=== PATIENT | male | born 1990 | race Caucasian/White ===

== ENCOUNTER 2020-11-15 17:33 | Emergency (ER) | payer MEDICAID ==
[~2020-11-15] VITALS: Ht 182.9 cm; Wt 83.0 kg
[2020-11-15 17:36] VITALS: BP 118/80
[2020-11-15] MEDS ORDERED: FAMO-90 PO (19:30)
[2020-11-15] MEDS ORDERED: PRED20TA5 PO (19:30)
[2020-11-15] MEDS ORDERED: DIPH25TA53 PO (19:30)
--- NOTE | 2020-11-15 19:32 | NUR ---
30/M FROM LOBBY WITH A COMPLAINT OF A ABDOMINAL RASH APPEARING X 2 DAYS. PT DENIES ANY NEW FOODS, SOAP, DETERGENTS. NO SOB. NO DISTRESS NOTED. IN BED PENDING MSE.
[2020-11-15] MEDS ORDERED: methylPREDNISolone SS 125 MG/2 ML VIAL IM ONE (19:35)
[2020-11-15] MEDS ORDERED: diphenhydrAMINE 50 MG/ML VIAL IM ONE (19:35)
[2020-11-15] MEDS ORDERED: FAMOTIDINE 20 MG TAB PO ONE (19:35)
--- NOTE | 2020-11-15 19:46 | NUR ---
Patient discharged with v/s stable. Written and verbal after care instructions given and explained. Patient alert, oriented and verbalized understanding of instructions. Ambulatory with steady gait. All questions addressed prior to discharge. ID band removed. Patient advised to follow up with PMD. Rx of BENDRYL, PREDNISONE,PEPCID given. Patient educated on indication of medication including possible reaction and side effects. Opportunity to ask questions provided and answered.
[2020-11-15 19:47] VITALS: BP 118/80
== END 2020-11-15 19:46 | disposition home or self-care (01) ==
LOC: MED 17:33
DX: R21 Rash and other nonspecific skin eruption (principal); L29.9 Pruritus, unspecified; Z79.899 Other long term (current) drug therapy
CPT/HCPCS: 99283; J1200; J2930